=== PATIENT | female | born 1995 | race Two or more races ===

== ENCOUNTER 2022-07-23 03:04 | Inpatient (IN) | payer OTHER ==
[~2022-07-23] VITALS: Ht 165.1 cm; Wt 87.1 kg
[2022-07-23] MEDS ORDERED: PRENATAL TABLE1 EAC1 PO (03:15)
[2022-07-23] MEDS ORDERED: NIFEDIPINE20 MG PO (03:15)
== END 2022-07-25 14:24 | disposition home or self-care (01) | DRG 807 ==
LOC: LDR 03:04 → OB/GYN 16:41
PROVIDERS: ADMIT Obstetrics & Gynecology; ATTEND Obstetrics & Gynecology
PROC: 10E0XZZ Delivery of Products of Conception, External Approach (ICD-10-PCS; principal; 2022-07-23)
PROC: 4A1HXCZ Monitoring of Products of Conception, Cardiac Rate, External Approach (ICD-10-PCS; 2022-07-23)
DX: O60.14X0 Preterm labor third trimester with preterm delivery third trimester, not applicable or unspecified (principal); Z37.0 Single live birth; Z3A.35 35 weeks gestation of pregnancy; Z20.822 Contact with and (suspected) exposure to COVID-19